=== PATIENT | male | born 1975 | race Caucasian/White ===

== ENCOUNTER → 2018-05-06 12:03 | Outpatient (CLI) | payer SELFPAY ==
--- NOTE | 2018-05-06 | DI.RAD.S_ITS ---
PROCEDURE: XR KNEE RT 3V INDICATIONS: Bilateral knee pain. TECHNIQUE: 3 views of the knee were acquired. COMPARISON: None. FINDINGS: Bones: No fractures or dislocations. No suspicious bony lesions. Mild degenerative change of the medial compartment of the right knee joint. Soft tissues: Small joint effusion. No suspicious soft tissue calcifications. IMPRESSION: Mild degenerative changes of the medial compartment of the right knee joint with small right knee joint effusion. Dictated by: Mickey Light M.D. on 05/06/2018 at 17:29 Approved by: Mickey Light M.D. on 05/06/2018 at 17:36
--- NOTE | 2018-05-06 | DI.RAD.S_ITS ---
PROCEDURE: XR KNEE LT 3V INDICATIONS: Bilateral knee pain. TECHNIQUE: 3 views of the knee were acquired. COMPARISON: None. FINDINGS: Bones: No fractures or dislocations. No suspicious bony lesions. Mild degenerative changes of the medial compartment of the left knee joint. Soft tissues: There is a small joint effusion. No suspicious soft tissue calcifications. IMPRESSION: Mild degenerative changes of the medial compartment of the left knee joint with small left knee joint effusion. Dictated by: Mickey Light M.D. on 05/06/2018 at 17:36 Approved by: Mickey Light M.D. on 05/06/2018 at 17:37
== END ==
PROVIDERS: Visit Provider Family Medicine
DX: M17.0 Bilateral primary osteoarthritis of knee (principal); M25.562 Pain in left knee; M25.561 Pain in right knee; M25.462 Effusion, left knee; M25.461 Effusion, right knee
CPT/HCPCS: 73562